=== PATIENT | male | born 1975 | race Caucasian/White ===

== ENCOUNTER 2019-07-12 21:34 | Inpatient (IN) ==
[2019-07-12] MEDS ORDERED: IBUPROFEN 600 MG TAB PO STA (21:54)
[2019-07-12] MEDS ORDERED: ACETAMINOPHEN 500 MG TAB PO STA (21:54)
--- NOTE | 2019-07-12 22:03 | Emergency Department Note ---
History of Present Illness General Chief complaint: Fever Stated complaint: FEVER Time Seen by Provider: 07/12/19 21:41 Source: patient Mode of arrival: ambulatory Limitations: no limitations History of Present Illness Maximum Pain Intensity: 5 This patient is a 43-year-old male who presents to the emergency department for evaluation of fever and flulike symptoms. The patient states that he has had symptoms for the past 4 days. He first measured his temperature 3 days ago and states it was up to 104 F. States the temp was 102 over the past 2 days. He has been taking Tylenol and ibuprofen intermittently which does seem to help with the temperature. He states that yesterday, he was seen at his primary care provider's office and was told that he had the flu, although no testing was done. He has had chills, body aches, cough and headache, although notes his symptoms have actually improved today. Patient states that he is concerned because his temperature increased again today and has not improved. He took ibuprofen 15 hours ago and Tylenol, 325 mg 10 hours ago he has had a decreased appetite today. He has been increasing his fluid intake. He has tried a cool washcloth and cool bath tonight which did not improve his fever. He rates his discomfort a 5/10. He denies recent travel. Home Medications Home Medications Medication Instructions Recorded Confirmed Type fluticasone propionate [Flonase 1 spray INTRANASAL DAILY PRN 07/12/19 07/12/19 History Allergy Relief] naproxen-pseudoephedrine [Aleve-D 1 tab PO BID PRN 07/12/19 07/12/19 History Sinus and Cold] oseltamivir [Tamiflu] 75 mg PO DIRECTED 07/12/19 07/12/19 History sodium chloride [Saline Mist] 2 spray INTRANASAL QID PRN 07/12/19 07/12/19 History Allergies Allergy/AdvReac Type Severity Reaction Status Date / Time erythromycin base Allergy Unknown Verified 07/12/19 22:27 Past Med/Surg History Medical History (Updated 07/13/19 @ 06:02 by Shaista Hu PA-C) No significant past medical history Surgical History No significant past surgical history Social History Beliefs That Will Affect Care: None Current Living Situation: Family current occupational status: employed current occupation: works in sales Other Information That Helps Us Care for You: No Feels Safe at Home: Yes Safety Concerns: Feels Safe At This Time Smoking Status: Never smoker Hx Alcohol Use: No Hx Substance Use: No Review of Systems A total of 10 systems reviewed and were otherwise negative Physical Exam Vital Signs Vital Signs - 24 hr 07/12/19 21:36 07/12/19 22:50 07/12/19 23:14 Temperature 39.1 C H Temperature Source Oral Pulse Rate 132 H Pulse Rate [Finger] Respiratory Rate 20 Respiratory Effort / Characteristics Non-Labored Spontaneous Respiratory Depth Normal Blood Pressure 146/82 H Blood Pressure Mean 103 Blood Pressure Position Sitting Pulse Oximetry 91 89 L 89 L Oxygen Delivery Method Room Air Room Air Room Air Sepsis Recent Fever Within 48 Hours Yes Sepsis New/Unexplained Change in Mental Status No Sepsis Action Taken by Nursing No Action Required 07/12/19 23:17 07/12/19 23:35 07/13/19 00:57 Temperature 38.1 C H Temperature Source Oral Pulse Rate Pulse Rate [Finger] 96 H Respiratory Rate 20 Respiratory Effort / Characteristics Spontaneous Respiratory Depth Blood Pressure Blood Pressure Mean Blood Pressure Position Pulse Oximetry 89 L 92 Oxygen Delivery Method Room Air Nasal Cannula Sepsis Recent Fever Within 48 Hours Sepsis New/Unexplained Change in Mental Status Sepsis Action Taken by Nursing VITALS: Vitals are noted on the nurse's note and reviewed by myself. Vital signs stable. GENERAL: This is a 43-year-old male, in mild distress, well-developed well- nourished. SKIN: The skin was without rashes. EARS: External auditory canals clear, tympanic membranes pearly maat without erythema or effusion bilaterally. EYES: Pupils equal round and reactive to light and accommodation. No conjunctiv al injection. NOSE: Patent, turbinates without inflammation or discharge. MOUTH: Mucous membranes moist. Tonsils are not enlarged. Pharynx without erythema or exudate. NECK: Supple without nuchal rigidity. No lymphadenopathy. HEART: Regular rate and rhythm without murmurs gallops or rubs. LUNGS: Tachypnea noted. Mild crackles in the left base. No retractions or accessory muscle use. ABDOMEN: Positive bowel sounds x 4. Soft, nontender to palpation. EXTREMITIES: No pitting edema. NEURO: Patient was alert and oriented to person place and time. Course Consultations Consultation #1: [facility] hospitalist Administered Medications Sodium Chloride (Nss 1000ml) 1,000 mls @ 125 mls/hr IV .Q8H KEL[place] Stop: 08/12/19 02:46 Last Admin: 07/13/19 02:59 Dose: 125 mls/hr Documented by: [id number] Piperacillin Sod/Tazobactam (Sod 3.375 gm/ Dextrose) 115 mls @ 28.75 mls/hr IV Q8H KELTON; Protocol Stop: 07/20/19 03:59 Last Admin: 07/13/19 04:00 Dose: 28.8 mls/hr Documented by: [id number] Discontinued Medications Acetaminophen (Tylenol) 1,000 mg PO NOW STA Stop: 07/12/19 21:55 Last Admin: 07/12/19 22:25 Dose: 1,000 mg Documented by: [id number] Albuterol (Duoneb) 3 ml NEB NOW STA Stop: 07/12/19 22:53 Last Admin: 07/12/19 23:14 Dose: 3 ml Documented by: [id number] Sodium Chloride (Nss 1000ml) 2,000 mls @ 999 mls/hr IV .Q2H1M ONE Stop: 07/13/19 00:41 Last Infusion: 07/13/19 02:51 Dose: 0 mls/hr Documented by: [id number] Admin: 07/12/19 23:20 Dose: 999 mls/hr Documented by: [id number] Piperacillin Sod/Tazobactam Sod (Zosyn) 4.5 gm in 120 mls @ 240 mls/hr IV NOW ONE Stop: 07/12/19 23:21 Last Infusion: 07/12/19 23:49 Dose: 0 mls/hr Documented by: [id number] Admin: 07/12/19 23:20 Dose: 240 mls/hr Documented by: [id number] Levofloxacin/Dextrose (Levaquin/D5w) 750 mg in 150 mls @ 100 mls/hr IV NOW STA Stop: 07/13/19 00:50 Last Infusion: 07/13/19 01:03 Dose: 0 mls/hr Documented by: [id number] Admin: 07/12/19 23:32 Dose: 100 mls/hr Documented by: [id number] Ibuprofen (Motrin) 600 mg PO NOW STA Stop: 07/12/19 21:55 Last Admin: 07/12/19 22:25 Dose: 600 mg Documented by: [id number] Medical Decision Making Differential Diagnosis Differential diagnosis includes pneumonia, influenza, viral illness, bronchitis, among others. Home Medications Current Medication List: was personally reviewed by me Laboratory Data Attestation: I reviewed the patient's lab results. Result diagrams: 07/12/19 23:13 07/12/19 23:13 Lab Results 07/12/19 07/12/19 07/12/19 Range/Units 22:05 23:13 23:13 WBC 4.29 L (4.8-10.8) K/uL RBC 4.73 (4.7-6.1) M/uL Hgb 14.0 (14.0-18.0) g/dL Hct 40.3 L (42-52) % MCV 85.2 (80-100) fL MCH 29.6 (25-34) pg MCHC 34.7 (32-36) g/dL RDW Std Deviation 39.3 (36.4-46.3) fL RDW Coeff of [place]ix[place] 12.5 (11.5-14.5) % Plt Count 136 (130-400) K/uL MPV 9.9 (7.4-10.4) fL Immature Gran % (Auto) 0.2 % Neut % (Auto) 79.8 % Lymph % (Auto) 12.1 % [place] % (Auto) 7.9 % Eos % (Auto) 0.0 % Baso % (Auto) 0.0 % Immature Gran # (Auto) 0.01 (0.00-0.02) K/uL Neut # (Auto) 3.42 (1.4-6.5) K/uL Lymph # (Auto) 0.52 L (1.2-3.4) K/uL [place] # (Auto) 0.34 (0.11-0.59) K/uL Eos # (Auto) 0.00 (0-0.5) K/uL Baso # (Auto) 0.00 (0-0.2) K/uL Giant Platelets 1+ Sodium (136-145) mmol/L Potassium (3.5-5.1) mmol/L Chloride (98-107) mmol/L Carbon Dioxide (21-32) mmol/L Anion Gap (3-11) BUN (7-18) mg/dl Creatinine (0.6-1.4) mg/dl Est Cr Clr Drug Dosing ml/min Est GFR ( Amer) Est GFR (Non-Af Amer) BUN/Creatinine Ratio (10-20) Glucose (70-99) mg/dl Lactate 1.0 (0.4-2.0) mmol/L Calcium (8.5-10.1) mg/dl Total Bilirubin (0.2-1) mg/dl AST (15-37) U/L ALT (12-78) U/L Alkaline Phosphatase (45-117) U/L Total Protein (6.4-8.2) gm/dl Albumin (3.4-5.0) gm/dl Globulin (2.5-4.0) gm/dl Albumin/Globulin Ratio (0.9-2) Procalcitonin (0-0.5) ng/ml Influenza Type A (PCR) Neg for Influ A (Neg) Influenza Type B (PCR) Neg for Influ B (Neg) 07/12/19 07/12/19 Range/Units 23:13 23:13 WBC (4.8-10.8) K/uL RBC (4.7-6.1) M/uL Hgb (14.0-18.0) g/dL Hct (42-52) % MCV (80-100) fL MCH (25-34) pg MCHC (32-36) g/dL RDW Std Deviation (36.4-46.3) fL RDW Coeff of [place] (11.5-14.5) % Plt Count (130-400) K/uL MPV (7.4-10.4) fL Immature Gran % (Auto) % Neut % (Auto) % Lymph % (Auto) % [place] % (Auto) % Eos % (Auto) % Baso % (Auto) % Immature Gran # (Auto) (0.00-0.02) K/uL Neut # (Auto) (1.4-6.5) K/uL Lymph # (Auto) (1.2-3.4) K/uL [place] # (Auto) (0.11-0.59) K/uL Eos # (Auto) (0-0.5) K/uL Baso # (Auto) (0-0.2) K/uL Giant Platelets Sodium 131 L (136-145) mmol/L Potassium 3.4 L (3.5-5.1) mmol/L Chloride 100 (98-107) mmol/L Carbon Dioxide 23 (21-32) mmol/L Anion Gap 8.0 (3-11) BUN 12 (7-18) mg/dl Creatinine 1.04 (0.6-1.4) mg/dl Est Cr Clr Drug Dosing 115.0 ml/min Est GFR ( Amer) 100.7 Est GFR (Non-Af Amer) 86.9 BUN/Creatinine Ratio 11.7 (10-20) Glucose 133 H (70-99) mg/dl Lactate (0.4-2.0) mmol/L Calcium 8.4 L (8.5-10.1) mg/dl Total Bilirubin 0.6 (0.2-1) mg/dl AST 39 H (15-37) U/L ALT 61 (12-78) U/L Alkaline Phosphatase 96 (45-117) U/L Total Protein 6.9 (6.4-8.2) gm/dl Albumin 2.9 L (3.4-5.0) gm/dl Globulin 4.0 (2.5-4.0) gm/dl Albumin/Globulin Ratio 0.7 L (0.9-2) Procalcitonin 0.57 H (0-0.5) ng/ml Influenza Type A (PCR) (Neg) Influenza Type B (PCR) (Neg) Imaging Data Attestation: I personally reviewed and interpreted this imaging study as f monico: Radiologist's Impression: XR chest 2V PA/lateral FINDINGS: Extensive alveolar opacities are noted throughout the lingula with additional scattered airspace opacities of the bilateral lower lobes. Cardiac silhouette is normal. No pneumothorax, large pleural effusion or overt pulmonary edema. Bones appear grossly intact. IMPRESSION: Multilobar left greater than right alveolar opacities are suggestive of multifocal pneumonia. Follow-up chest radiographs following treatment course recommended to document complete resolution. CT CHEST Without Contrast: Confluent consolidation in the lingula. Patchy infiltrates in the left upper and lower lobes. Much milder infiltrates in the right middle and right lower lobes. Radiologist: Valeria Manning M.D. Blood Pressure Blood Pressure Findings: Normal blood pressure Blood Pressure Disposition: did not require urgent referral MDM Narrative The patient is a 43-year-old male who presents today complaining of cough and fever. Chest x-ray was performed and shows a multifocal pneumonia. Labs were drawn and show a slightly low white blood cell count of 4.29. No concerning anemia or electrolyte abnormalities. Influenza testing by PCR was negative. Procalcitonin minimally elevated, lactate was within normal limits. Blood cultures were drawn and are pending. Patient was treated empirically with Zosyn and Levaquin. Given the severity of the patient's illness and leukopenia suggestive of viral process with negative influenza testing, there is concern for possibility of COVID-19 given current outbreak. While patient does not have any concerning travel history or exposure to COVID positive patient, the current CDC recommendations are to consider testing and hospitalized patient with no other known source. Infection control was made aware of the patient. He was placed in a negative pressure isolation room on airborne precautions. CT of the chest was performed after discussion with the hospitalist and confirms multifocal pneumonia with confluent consolidation in the lingula. Patient was hypoxic in the high 80s on room air and was placed on 2 L of oxygen via nasal cannula. He was given IV hydration, Tylenol and ibuprofen. The case was discussed with the [facility] hospitalist, who agreed to evaluate the patient for further care. Impression & Plan Multifocal pneumonia, Hypoxia Discharge Plan Visit Data *Final* Discharge Date/Time: 07/13/19 02:17 Chief Complaint: Fever Stated Complaint: FEVER ED Provider: Edgardo Vera ED Midlevel Provider: Shaista Hu Discharge Problem: Multifocal pneumonia, Hypoxia Patient Disposition: Admitted As Inpatient Discharge Instructions Interventions: ED Discharge Assessment Last Done: 07/13/19 02:17
--- NOTE | 2019-07-12 22:27 | XRay Report ---
XR chest 2V PA/lateral HISTORY: 43 years-old Male cough, fever acute cough with fever COMPARISON: None TECHNIQUE: PA and lateral views of the chest FINDINGS: Extensive alveolar opacities are noted throughout the lingula with additional scattered airspace opac ities of the bilateral lower lobes. Cardiac silhouette is normal. No pneumothorax, large pleural effu rene or overt pulmonary edema. Bones appear grossly intact. IMPRESSION: Multilobar left greater than right alveolar opacities are suggestive of multifocal pneumo xochitl. Follow-up chest radiographs following treatment course recommended to document complete resoluti on. ACT 112: Negative or not required by law. The above report was generated using voice recognition software. It may contain grammatical, syntax o r spelling errors. Electronically signed by: Lucian Sanchez M.D. 07/12/2019 10:26 PM
[2019-07-12] MEDS ORDERED: SODIUM CHLORIDE 0.9% 1000ML 2,000 ML IV ONE (22:41)
[2019-07-12 22:44] LABS: Influenza A virus by PCR Neg for Influ A (Neg); Influenza B virus by PCR Neg for Influ B (Neg)
[2019-07-12] MEDS ORDERED: ALBUT/IPRATROP 3MG/0.5MG NEB 3 ML VIAL NEB STA (22:52)
[2019-07-12] MEDS ORDERED: PIPERACILL/TAZOBAC CONSULT ACTIVE PRN (22:52)
[2019-07-12] MEDS ORDERED: PIPERACILLIN/TAZOBACTAM 4.5 GM/120 ML BAG IV ONE (22:52)
[2019-07-12] MEDS ORDERED: LEVOFLOXACIN/D5W 750 MG/150 ML BAG IV STA (23:21)
[2019-07-12 23:32] LABS: Hematocrit (blood only) 40.3 % (42-52); Mean Corpuscular Hemoglobin 29.6 pg (25-34); Mean Corpuscular Hgb Conc 34.7 g/dL (32-36); Mean Corpuscular Volume 85.2 fL (80-100); Mean Platelet Volume 9.9 fL (7.4-10.4); Platelet Count 136 K/uL (130-400); RDW Coefficient of Variation 12.5 % (11.5-14.5); RDW Standard Deviation 39.3 fL (36.4-46.3); Red Blood Count 4.73 M/uL (4.7-6.1); White Blood Count 4.29 K/uL (4.8-10.8)
[2019-07-12 23:43] LABS: Albumin Level 2.9 gm/dl (3.4-5.0); BUN Creatinine Ratio 11.7 (10-20); Calcium 8.4 mg/dl (8.5-10.1); Est GFR (African American) 100.7; Est GFR (Non-African American) 86.9; Potassium 3.4 mmol/L (3.5-5.1)
[2019-07-12 23:46] LABS: Albumin Globulin Ratio 0.7 (0.9-2); Bilirubin,Total 0.6 mg/dl (0.2-1); Total Protein 6.9 gm/dl (6.4-8.2)
[2019-07-12 23:49] LABS: Giant Platelets 1+; Immature Granulocytes # (auto) 0.01 K/uL (0.00-0.02); Immature Granulocytes % (auto) 0.2 %; Lymphocytes # (auto) 0.52 K/uL (1.2-3.4); Lymphocytes % (auto) 12.1 %; Monocytes # (auto) 0.34 K/uL (0.11-0.59); Monocytes % (auto) 7.9 %; Neutrophils # (auto) 3.42 K/uL (1.4-6.5); Neutrophils % (auto) 79.8 %
[2019-07-13] MEDS ORDERED: ONDANSETRON INJ 2 MG/ML 2 ML VIAL IV PRN (02:47)
[2019-07-13] MEDS ORDERED: FLUTICASONE PROPIONATE NA SPR 16 GM BTL PRN (02:47)
[2019-07-13] MEDS ORDERED: NITROGLYCERIN SL 0.4 MG/TAB TAB SL PRN (02:47)
[2019-07-13] MEDS: SODIUM CHLORIDE 0.9% 1000ML 1,000 ML IV SCH ×3 (02:59→17:18)
[2019-07-13] MEDS ORDERED: LEVOFLOXACIN CONSULT ACTIVE PRN (03:03)
[2019-07-13] MEDS: PIPERACILLIN/TAZOBACTAM 3.375 GM in DEXTROSE 5% 100 ML IV SCH ×3 (04:00→19:41)
--- NOTE | 2019-07-13 04:20 | History and Physical Report ---
DATE OF ADMISSION: 07/13/2019 CHIEF COMPLAINT: Fever and cough and shortness of breath. HISTORY OF PRESENT ILLNESS: This 43-year-old male with no significant past medical history, comes with fever and cough since last about 4 days. The patient says last he felt sick, felt cold, and Friday he had temperature and when he checked it was 104. He took [id number] medication, fever came down to 102 and he also developed some dry cough and today he is bringing up some brownish phlegm and was getting short of breath and his fever was again not subsiding, it was going up, so he came to the ER and his flu swab was negative. His labs showed some leukopenia of WBC of 4.2. Sodium of 131, potassium 3.4, procalcitonin 0.5, lactate was 1. Chest x-ray showed multifocal pneumonia and CT of the chest also was done which shows possible multilobar pneumonia and patient was tachycardic when he came in and also had T-max of 39.1. He got fluids and IV Zosyn, IV Levaquin and he says he is feeling much better now. He is saturating okay, he was 89% on room air, currently saturating fine on nasal cannula. Denies any runny nose, no sore throat. Has some headaches. Denies any dizziness, no blurred visions, no earaches. No recent travel. He works as a salesperson in the town. He lives with his and 2 sons and his 2 sons got flu couple of weeks ago and were doing fine since last 1 week. Today, his appetite is down. Denies any nausea, vomiting. No abdominal pain, no diarrhea, no constipation, no blood in the stools or black stools. No hematuria, no burning micturition. No rash, no swelling in the legs. ALLERGIES: ERYTHROMYCIN BASED. PAST MEDICAL HISTORY: None. PAST SURGICAL HISTORY: None. MEDICATIONS: None. FAMILY HISTORY: Denies any family history. SOCIAL HISTORY: Denies any smoking, alcohol rarely. No drug use. Lives with his family. REVIEW OF SYSTEMS: As per HPI. Rest of review of systems negative. PHYSICAL EXAMINATION: GENERAL: The patient is of moderate build, not in acute distress. VITAL SIGNS: Temperature T-max 39.1, blood pressure 146/82, pulse 96, respiratory rate 20, oxygen 89% on room air, currently 92% on nasal cannula. HEENT: Head atraumatic, Pupils equal, round, reactive to light. Oral mucosa moist. NECK: No neck masses, supple. CARDIOVASCULAR: S1, S2 heard. Tachycardia. No murmurs. RESPIRATORY SYSTEM: Normal AP diameter. No accessory muscle use. Mild bibasilar crackles. No wheezing. ABDOMEN: Soft, bowel sounds present, nontender. No distention. CENTRAL NERVOUS SYSTEM: Cranial nerves II-XII grossly intact. Nonfocal. EXTREMITIES: No edema, no erythema. LABORATORY DATA: WBC 4.2, hemoglobin 14, hematocrit 40.3, platelets 136. Sodium 131, potassium 3.4, chloride 100, bicarbonate 23, BUN 12, creatinine 1.04, serum glucose 133. Lactate 1, calcium 8.4, total bilirubin 0.6, AST 39, ALT 61, alkaline phosphatase 96. Procalcitonin 0.5. Influenza A and B negative. IMAGING DATA: Chest x-ray, multilobar left greater than right alveolar opacity suggestive of multifocal pneumonia. Chest CT preliminary report, patchy infiltrates in left upper and lower lobe, infiltrate in the right middle and right lower lobes. ASSESSMENT AND PLAN: This is a 43-year-old male who presents with fever, shortness of breath, cough, and found to have multifocal pneumonia. 1. Multifocal pneumonia, viral versus bacterial. Has mild leukopenia. The patient has high temperature, tachycardic, and hypoxic with 89% oxygen on room air. Imaging study is showing multifocal pneumonia. No recent travels. His boys got down with flu a couple of weeks ago and they are doing fine since 1 week. The patient is feeling better after fluids and antibiotics. We will follow the cultures. IV antibiotics with Zosyn and Levaquin, IV fluids at normal saline 125 mL per hour. Will get MRSA swab. Because of the concern of COVID-19, we will put him on contact precautions, air borne precautions, and we will send for COVID study and closely monitor. Follow the labs in the a.m. Will closely follow the response for above measures.. 2. Deep venous thrombosis prophylaxis, sequential compression devices. DISPOSITION: Admit to tele floor. Expect to discharge home and follow with his family doctor. Level 1 full code. MTDD
--- NOTE | 2019-07-13 06:27 | CT Scan Report ---
CT chest wo con CT DOSE: 612.79 mGy.cm HISTORY: Pneumonia multifocal pneumonia TECHNIQUE: Multiaxial CT images of the chest were performed without contrast. A dose lowering techni que was utilized adhering to the principles of ALARA. COMPARISON: None. FINDINGS: Bilateral diffuse ankle infiltrative change. This predominates in the left mid to left lowe r lung region. This involves the left lower lobe as well as components of the lingula. There are cons olidative changes of the lingula. Additional less prominent parenchymal infiltrative changes are seen in the left upper lobe. Less prom inent infiltrative changes seen in the right middle and right lower lobe region. IMPRESSION: 1. Diffuse left and to a lesser extent right parenchymal infiltrative change. 2. The lingular infiltrative changes show consolidative change. ACT 112: Negative or not required by law. The above report was generated using voice recognition software. It may contain grammatical, syntax or spelling errors. Electronically signed by: Joo Hurley M.D. 07/13/2019 6:26 AM
[2019-07-13 07:05] LABS: Basophils # (auto) 0.01 K/uL (0-0.2); Basophils % (auto) 0.2 %; Hematocrit (blood only) 39.7 % (42-52); Hemoglobin 13.4 g/dL (14.0-18.0); Immature Granulocytes # (auto) 0.02 K/uL (0.00-0.02); Immature Granulocytes % (auto) 0.5 %; Lymphocytes # (auto) 0.79 K/uL (1.2-3.4); Lymphocytes % (auto) 18.8 %; Mean Corpuscular Hemoglobin 29.7 pg (25-34); Mean Corpuscular Hgb Conc 33.8 g/dL (32-36); Mean Platelet Volume 9.7 fL (7.4-10.4); Monocytes # (auto) 0.49 K/uL (0.11-0.59); Monocytes % (auto) 11.7 %; Neutrophils # (auto) 2.89 K/uL (1.4-6.5); Neutrophils % (auto) 68.8 %; Platelet Count 125 K/uL (130-400); RDW Coefficient of Variation 12.9 % (11.5-14.5); RDW Standard Deviation 41.5 fL (36.4-46.3); Red Blood Count 4.51 M/uL (4.7-6.1)
[2019-07-13 07:47] LABS: BUN Creatinine Ratio 10.9 (10-20); Calcium 7.9 mg/dl (8.5-10.1); Creatinine Clr Calc Pharmacy 119.1 ml/min; Est GFR (African American) 104.4; Potassium 3.9 mmol/L (3.5-5.1)
[2019-07-13] MEDS: ACETAMINOPHEN 325 MG TAB PO PRN ×3 (08:40→19:41)
[2019-07-13] MEDS ORDERED: ZOLPIDEM TARTRATE 5 MG TAB PO PRN (16:51)
--- NOTE | 2019-07-13 16:51 | Hospitalist Progress Note ---
Date of Service July 13, 2019 Assessment & Plan (1) Multifocal pneumonia: Acute respiratory failure with Hypoxia secondary to multifocal pneumonia assessment for rule out COVID-19 -as per ED 07/12/2019 assessment: "The patient is a 43-year-old male who presents today complaining of cough and fever. Chest x-ray was performed and shows a multifocal pneumonia. Labs were drawn and show a slightly low white blood cell count of 4.29. No concerning anemia or electrolyte abnormalities. Influenza testing by PCR was negative. Procalcitonin minimally elevated, lactate was within normal limits. Blood cultures were drawn and are pending. Patient was treated empirically with Zosyn and Levaquin. Given the severity of the patient's illness and leukopenia suggestive of viral process with negative influenza testing, there is concern for possibility of COVID-19 given current outbreak. While patient does not have any concerning travel history or exposure to COVID positive patient, the current CDC recommendations are to consider testing and hospitalized patient with no other known source. Infection control was made aware of the patient. He was placed in a negative pressure isolation room on airborne precautions. CT of the chest was performed after discussion with the hospitalist and confirms multifocal pneumonia with confluent consolidation in the lingula. Patient was hypoxic in the high 80s on room air and was placed on 2 L of oxygen via nasal cannula. He was given IV hydration, Tylenol and ibuprofen. " -07/12/2019 CT chest "diffuse left and to a lesser extent right parenchymal infiltrative change. The lingular infiltrative changes show consolidative change." -the probability of COVID-19 as cause of the pneumonia appears very low, however, patient remains in airborne isolation/contact isolation until the COVID-19 testing returns. Continue Zosyn and Levaquin and supplementary oxygen. continue IV fluids. tachycardia from illness. monitor heart rate on telemetry -continue prn analgesics -full liquid diet for helping with appetitie -ambien prn for sleep Deep venous thrombosis prophylaxis, sequential compression devices Admission and Anticipated Discharge Date Admission Date: July 13, 2019 Subjective Patient on supplementary oxygen of nasal cannula. speaking in full sentences with periodic cough. no crackles audible on lung auscultation. patient does not report of acute chest pain or acute abdomen pain. no vomiting. reports poor appetite . tachycardia on exam around 110 bpm Review of Systems Review of Systems: All systems reviewed & are unremarkable except as noted in HPI & below Physical Exam Constitutional: + ill appearing Eyes: PERRL, conjunctivae normal, anicteric sclerae EOM intact bilaterally ENMT: external ear and nose normal, oropharynx normal Neck: normal visual inspection Respiratory: normal respiratory effort Auscultation: lungs clear to auscultation bilaterally Cardiovascular: Rate/Rhythm: + tachycardic Gastrointestinal (Abdomen): normal bowel sounds, soft, nontender, no hepatosplenomegaly Musculoskeletal: Head/Neck/Chest: normocephalic and head atraumatic Neurologic: PERRL, EOMI, accommodation nl, no face palsy, no dysarthria CN's II-XI intact bilaterally Psychiatric: Orientation: alert and oriented x 3 Results & Data ([facility]) Vital Signs (Past 12 Hours) Vital Signs Temp Pulse Pulse Resp BP Pulse Ox 07/13/19 15:20 36.7 C 110 H 20 129/76 93 07/13/19 11:28 36.7 C 107 H 18 126/76 91 07/13/19 09:00 88 07/13/19 07:15 36.4 C L 96 H 18 122/77 92
[2019-07-13] MEDS ORDERED: SODIUM CHLORIDE 0.9% 500 ML IV SCH (21:00)
[2019-07-13] MEDS: LEVOFLOXACIN/D5W 750 MG/150 ML BAG IV SCH (21:56)
[2019-07-14] MEDS: PIPERACILLIN/TAZOBACTAM 3.375 GM in DEXTROSE 5% 100 ML IV SCH ×3 (03:28→21:43)
[2019-07-14] MEDS: ACETAMINOPHEN 325 MG TAB PO PRN ×3 (03:47→17:00)
[2019-07-14] MEDS ORDERED: XOPENEX/ATROVENT 1.25mg/0.5MG NEB COMBO NEB PRN (03:55)
[2019-07-14] MEDS ORDERED: KETOROLAC 30 MG/ML VIAL IV ONE (03:57)
[2019-07-14] MEDS ORDERED: LEVALBUTEROL 1.25MG/0.5ML NEB INH PRN (04:00)
[2019-07-14] MEDS ORDERED: IPRATROPIUM BROMIDE NEB SOLN 0.02% 2.5 ML VIAL INH PRN (04:00)
--- NOTE | 2019-07-14 06:32 | XRay Report ---
XR chest 1V portable CLINICAL HISTORY: congestion COMPARISON STUDY: 07/12/2019 FINDINGS: There is progressive left mid and lower lung zone parenchymal consolidation consistent with pneumonia. Airspace opacities are also visualized towards the right lung base suggestive of a right lung pneumonia.[ IMPRESSION: Multifocal airspace opacities consistent with a multifocal pneumonia. Slight progression on the left. ACT 112: Negative or not required by law. Electronically signed by: Pierce Davis M.D. 07/14/2019 6:31 AM
[2019-07-14] MEDS: SODIUM CHLORIDE 0.9% 1000ML 1,000 ML IV SCH (08:02)
[2019-07-14] MEDS ORDERED: LEVALBUTEROL 1.25MG/0.5ML NEB NEB SCH (13:00)
[2019-07-14] MEDS: ACETYLCYSTEINE 10% INHAL SOLN 4 ML **DISPENSED BY RESP. INH SCH ×2 (13:38→19:37)
[2019-07-14 13:51] LABS: Basophils # (auto) 0.01 K/uL (0-0.2); Basophils % (auto) 0.5 %; Hematocrit (blood only) 37.2 % (42-52); Hemoglobin 12.8 g/dL (14.0-18.0); Immature Granulocytes # (auto) 0.01 K/uL (0.00-0.02); Immature Granulocytes % (auto) 0.5 %; Lymphocytes # (auto) 0.59 K/uL (1.2-3.4); Lymphocytes % (auto) 28.5 %; Mean Corpuscular Hemoglobin 29.3 pg (25-34); Mean Corpuscular Hgb Conc 34.4 g/dL (32-36); Mean Corpuscular Volume 85.1 fL (80-100); Mean Platelet Volume 9.5 fL (7.4-10.4); Monocytes # (auto) 0.39 K/uL (0.11-0.59); Monocytes % (auto) 18.8 %; Neutrophils # (auto) 1.07 K/uL (1.4-6.5); Neutrophils % (auto) 51.7 %; Platelet Count 133 K/uL (130-400); RDW Standard Deviation 40.6 fL (36.4-46.3); Red Blood Count 4.37 M/uL (4.7-6.1); White Blood Count 2.07 K/uL (4.8-10.8)
[2019-07-14 14:24] LABS: BUN Creatinine Ratio 11.1 (10-20); Calcium 8.4 mg/dl (8.5-10.1); Creatinine Clr Calc Pharmacy 115.6 ml/min; Est GFR (African American) 100.7; Est GFR (Non-African American) 86.9; Potassium 3.1 mmol/L (3.5-5.1)
[2019-07-14] MEDS: LACTOBACILLUS ACIDOPHILUS (FLORANEX) TAB PO SCH ×2 (17:00→21:43)
[2019-07-14] MEDS: guaiFENesin 600 MG TABCR PO SCH ×2 (17:00→21:43)
[2019-07-14] MEDS: LEVALBUTEROL HCL 1.25 MG/3 ML NEB NEB SCH (19:37)
--- NOTE | 2019-07-14 20:11 | Hospitalist Progress Note ---
Date of Service July 14, 2019 Assessment & Plan (1) Multifocal pneumonia: Acute Respiratory failure with Hypoxia secondary to multifocal pneumonia assessment for rule out COVID-19 COVID 19 test pending [employer] screen positive for coronavirus HK1u and mycoplasma Blood cultures negative so far Sputum culture pending T-max 39.1 WBC 2.07 Clinically patient improving gradually overall Needs to be monitored closely Continue Zosyn plus Levaquin Increase IV fluids Add scheduled nebs, Mucomyst, Mucinex Humidify oxygen, wean off accordingly PRN Tylenol for fever Deep venous thrombosis prophylaxis, Lovenox 40 mg subcutaneous daily next sequential compression devices Disposition Pending Case and plan of care discussed with patient in detail and at length All questions answered He is understanding, comfortable, agreeable with plan of care Admission and Anticipated Discharge Date Admission Date: July 13, 2019 Subjective Follow-up for multifocal pneumonia, hypoxia Seen sitting up in bed, on 2 L of oxygen via nasal cannula, comfortable, not in distress Very pleasant States he feels improved day by day, less short of breath today Still having cough positive of yellow sputum Denies chest pain, palpitations, dizziness Having chills when temperature spikes Denies headache, dizziness, chest pain, abdominal pain, nausea vomiting No urinary symptoms, diarrhea Denies other symptoms Review of Systems Review of Systems: All systems reviewed & are unremarkable except as noted in HPI & below Physical Exam Physical Exam: General- oriented x 3, not in distress, speaks in sentences with no effort or accessory muscle use Head- atraumatic Eyes- PERRL, EOMI, anicteric ENT- oropharynx clear Neck- supple, no JVD, no adenopathy, no thyromegaly; carotids +2/2, no bruits appreciated Lungs-positive diffuse rhonchi left lung, mild rhonchi in the right No wheezing Heart- normal rate, regular rhythm; no murmur, no gallop, no rub appreciated Abdomen- normal bowel sounds, nondistended, soft, nontender, no masses or hepatosplenomegaly Extremities- no pretibial edema, no calf tenderness; peripheral pulses intact Neuro- alert, oriented x 3; CN 2-12 grossly intact; motor 5/5 bilaterally;sensation 100% on all extremities; no other gross focal neurologic deficits Skin- warm & dry Results & Data ([facility]) Vital Signs (Past 12 Hours) Vital Signs Temp Pulse Pulse Resp BP Pulse Ox 07/14/19 19:40 100 H 18 93 07/14/19 17:00 38.2 C H 100 H 22 113/74 95 07/14/19 16:00 103 H 07/14/19 12:09 36.6 C 84 18 114/77 91 Laboratory Results Laboratory Results - last 24 hr 07/13/19 07/13/19 07/14/19 08:23 21:20 13:42 WBC 2.07 L RBC 4.37 L Hgb 12.8 L Hct 37.2 L MCV 85.1 MCH 29.3 MCHC 34.4 RDW Std Deviation 40.6 RDW Coeff of [place] 13.0 Plt Count 133 MPV 9.5 Immature Gran % (Auto) 0.5 Neut % (Auto) 51.7 Lymph % (Auto) 28.5 [place] % (Auto) 18.8 Eos % (Auto) 0.0 Baso % (Auto) 0.5 Immature Gran # (Auto) 0.01 Neut # (Auto) 1.07 L Lymph # (Auto) 0.59 L [place] # (Auto) 0.39 Eos # (Auto) 0.00 Baso # (Auto) 0.01 Sodium Potassium Chloride Carbon Dioxide Anion Gap BUN Creatinine Est Cr Clr Drug Dosing Est GFR ( Amer) Est GFR (Non-Af Amer) BUN/Creatinine Ratio Glucose Lactate 1.2 Calcium Ref Lab Test Result 07/14/19 13:42 WBC RBC Hgb Hct MCV MCH MCHC RDW Std Deviation RDW Coeff of [place]ix[place] Plt Count MPV Immature Gran % (Auto) Neut % (Auto) Lymph % (Auto) [place] % (Auto) Eos % (Auto) Baso % (Auto) Immature Gran # (Auto) Neut # (Auto) Lymph # (Auto) [place] # (Auto) Eos # (Auto) Baso # (Auto) Sodium 134 L Potassium 3.1 L D Chloride 103 Carbon Dioxide 24 Anion Gap 7.0 BUN 12 Creatinine 1.04 Est Cr Clr Drug Dosing 115.6 Est GFR ( Amer) 100.7 Est GFR (Non-Af Amer) 86.9 BUN/Creatinine Ratio 11.1 Glucose 127 H Lactate Calcium 8.4 L Ref Lab Test Result
[2019-07-14] MEDS ORDERED: POTASSIUM CHLORIDE 20 MEQ TABCR PO ONE (20:15)
[2019-07-14] MEDS: ENOXAPARIN INJ 40 MG/0.4 ML SYR SQ SCH (21:43)
[2019-07-14] MEDS: NSS + 20MEQ KCL 20 MEQ/1,000 ML BAG IV SCH (21:43)
[2019-07-14] MEDS: LEVOFLOXACIN/D5W 750 MG/150 ML BAG IV SCH (23:49)
[2019-07-15] MEDS: LEVALBUTEROL HCL 1.25 MG/3 ML NEB NEB SCH ×4 (01:01→19:55)
[2019-07-15] MEDS: PIPERACILLIN/TAZOBACTAM 3.375 GM in DEXTROSE 5% 100 ML IV SCH (05:23)
[2019-07-15] MEDS: NSS + 20MEQ KCL 20 MEQ/1,000 ML BAG IV SCH ×3 (05:24→20:28)
[2019-07-15] MEDS: ACETYLCYSTEINE 10% INHAL SOLN 4 ML **DISPENSED BY RESP. INH SCH ×2 (07:23→19:56)
[2019-07-15 07:28] LABS: Hematocrit (blood only) 33.6 % (42-52); Hemoglobin 11.5 g/dL (14.0-18.0); Mean Corpuscular Hemoglobin 29.5 pg (25-34); Mean Corpuscular Hgb Conc 34.2 g/dL (32-36); Mean Corpuscular Volume 86.2 fL (80-100); Mean Platelet Volume 9.3 fL (7.4-10.4); Platelet Count 136 K/uL (130-400); RDW Coefficient of Variation 13.3 % (11.5-14.5); RDW Standard Deviation 42.3 fL (36.4-46.3); White Blood Count 2.44 K/uL (4.8-10.8)
[2019-07-15 07:51] LABS: Basophils # (auto) 0.01 K/uL (0-0.2); Basophils % (auto) 0.4 %; Echinocytes 1+; Eosinophils # (auto) 0.01 K/uL (0-0.5); Eosinophils % (auto) 0.4 %; Immature Granulocytes # (auto) 0.01 K/uL (0.00-0.02); Immature Granulocytes % (auto) 0.4 %; Lymphocytes # (auto) 0.74 K/uL (1.2-3.4); Lymphocytes % (auto) 30.3 %; Monocytes # (auto) 0.68 K/uL (0.11-0.59); Monocytes % (auto) 27.9 %; Neutrophils # (auto) 0.99 K/uL (1.4-6.5); Neutrophils % (auto) 40.6 %
[2019-07-15 07:58] LABS: BUN Creatinine Ratio 7.7 (10-20); Calcium 8.3 mg/dl (8.5-10.1); Creatinine Clr Calc Pharmacy 120.3 ml/min; Est GFR (African American) 105.6; Est GFR (Non-African American) 91.1; Potassium 3.9 mmol/L (3.5-5.1)
[2019-07-15] MEDS: guaiFENesin 600 MG TABCR PO SCH ×2 (08:09→20:33)
[2019-07-15] MEDS: LACTOBACILLUS ACIDOPHILUS (FLORANEX) TAB PO SCH ×4 (08:09→20:34)
--- NOTE | 2019-07-15 08:47 | XRay Report ---
XR chest 1V portable CLINICAL HISTORY: Pneumonia. Follow-up examination. COMPARISON STUDY: 07/14/2019 FINDINGS: There is slight improvement in the dense parenchymal consolidation involving the left mid l ower lung zones. There is also slight improvement in the right lower lung zone airspace opacities. Th ere are no large pleural effusions. There is no failure.[ IMPRESSION: 1. Mild improvement in the bilateral pulmonary airspace opacities consistent with a multifocal pneumo xochitl ACT 112: Negative or not required by law. Electronically signed by: Pierce Davis M.D. 07/15/2019 8:46 AM
--- NOTE | 2019-07-15 17:10 | Pulmonary Consultation ---
Date of Consultation July 15, 2019 Assessment & Plan (1) Multifocal pneumonia: Procalcitonin is 0.63 which is slightly elevated (0-0.5) Patient apparently started on levofloxacin and Zosyn (day #3) Last documented fever 07/14/2019 at 1700 (38.2 centigrade) Is probably multifactorial including a viral component Patient positive for coronavirus HKU1 Testing for COVID19 is pending Continue isolation per protocol Continue supportive care (2) Hypoxia: This is now resolved. Chest x-ray shows improvement today Fever has resolved Continue empiric antibiotics and supportive care for viral infection (3) Cytopenia: He denies history of cytopenia in the past Most likely bone marrow suppression from acute illness Follow serial labs Thank you for including us in the care of this patient We will continue to follow along with you Please refer to Dr. Marcus's addendum for further recommendations History of Present Illness Attending Physician: Nelson Angela MD History of Present Illness Attending: Dr. Marcus Patient is a 43-year-old male that presents with shortness of breath and fever. He reports he has had fever since last Friday. His fever at home was as high as 104 Fahrenheit. When asked what his presumptive symptoms were when he presented the ED he responded he "knew that something was wrong". Patent reports persistent fever, cough, and malaise. He states that his cough is non- productive currently but was previously yellowish-brown. Hemoptysis. Flu swab was negative for influenza A and influenza B. However, respiratory panel revealed coronavirus HKU1 and mycoplasma pneumonia. He states that his fever has subsided. He has no chest pain or tightness. He has no nausea or vomiting. He has no diarrhea. Patient clinically is improved but still has occasional cough. Patient states he has no significant past medical history. He has no history of tobacco abuse including cigarettes or smokeless tobacco. He has no illicit drug use history. He has limited social ethanol use. He has no contacts he is aware of that have been in contact with COVID-19. He travels locally for business but no travel outside of the region. Allergies Allergy/AdvReac Type Severity Reaction Status Date / Time erythromycin base Allergy Unknown Verified 07/12/19 22:27 Home Medications Home Medications Medication Instructions Recorded Confirmed Type fluticasone propionate [Flonase 1 spray INTRANASAL DAILY PRN 07/12/19 07/12/19 History Allergy Relief] naproxen-pseudoephedrine [Aleve-D 1 tab PO BID PRN 07/12/19 07/12/19 History Sinus and Cold] oseltamivir [Tamiflu] 75 mg PO DIRECTED 07/12/19 07/12/19 History sodium chloride [Saline Mist] 2 spray INTRANASAL QID PRN 07/12/19 07/12/19 History Patient History Medical History No significant past medical history Surgical History No significant past surgical history Social History Communication Ability: Effective Beliefs That Will Affect Care: None Current Living Situation: Family current occupational status: employed current occupation: works in sales Other Information That Helps Us Care for You: No Feels Safe at Home: Yes Safety Concerns: Feels Safe At This Time Smoking Status: Never smoker Hx Alcohol Use: No Hx Substance Use: No Review of Systems Review of Systems: All systems reviewed & are unremarkable except as noted in HPI & below Physical Exam Physical Exam: GENERAL : No acute distress EYES: No icterus, gaze conjugate NOSE: No evidence of epistaxis MOUTH: No lesions or candidiasis NECK: Supple LUNGS: CTA B/L, no wheezes, rales or rhonchi HEART: Regular, rate controlled ABDOMEN: Soft, NT, ND, BS Present EXTREMITIES: No LE edema, pedal pulses intact NEURO: A&OX3 Results & Data ([facility]) Vital Signs (Past 12 Hours) Vital Signs Temp Pulse Pulse Resp BP Pulse Ox Pulse Ox 07/15/19 13:26 108 H 16 94 07/15/19 12:00 37.2 C 98 H 20 126/63 95 07/15/19 09:29 94 H 07/15/19 08:00 36.5 C 103 H 20 116/72 98 98 07/15/19 07:24 95 H 19 90 07/15/19 05:27 36.8 C 102 H 18 121/72 90 Laboratory Results XR chest 1V portable CLINICAL HISTORY: Pneumonia. Follow-up examination. COMPARISON STUDY: 07/14/2019 FINDINGS: There is slight improvement in the dense parenchymal consolidation involving the left mid lower lung zones. There is also slight improvement in the right lower lung zone airspace opacities. There are no large pleural effusions. There is no failure.[ IMPRESSION: 1. Mild improvement in the bilateral pulmonary airspace opacities consistent with a multifocal pneumonia Electronically signed by: Pierce Davis M.D. 07/15/2019 8:[address] chest wo con CT DOSE: 612.79 mGy.cm HISTORY: Pneumonia multifocal pneumonia TECHNIQUE: Multiaxial CT images of the chest were performed without contrast. A dose lowering technique was utilized adhering to the principles of ALARA. COMPARISON: None. FINDINGS: Bilateral diffuse ankle infiltrative change. This predominates in the left mid to left lower lung region. This involves the left lower lobe as well as components of the lingula. There are consolidative changes of the lingula. Additional less prominent parenchymal infiltrative changes are seen in the left upper lobe. Less prominent infiltrative changes seen in the right middle and right lower lobe region. IMPRESSION: 1. Diffuse left and to a lesser extent right parenchymal infiltrative change. 2. The lingular infiltrative changes show consolidative change. Electronically signed by: Joo Hurley M.D. 07/13/2019 6:26 AM PG Care Time/CCT Total # of Minutes Spent Total Time Spent with Patient: Total time spent is greater than 50% in coordination of care (as documented) at patient's floor/unit and/or counseling patient: 25 minutes Coding Level of Care Code 79046 Inpt Consult Level 4 Diagnoses Multifocal pneumonia J18.9 Hypoxia R09.02 Cytopenia D75.9
--- NOTE | 2019-07-15 19:37 | Hospitalist Progress Note ---
Date of Service July 15, 2019 Assessment & Plan (1) Multifocal pneumonia: Acute Respiratory failure with Hypoxia secondary to multifocal pneumonia assessment for rule out COVID-19 COVID 19 test pending [employer] screen positive for coronavirus HK1u and mycoplasma Blood cultures negative so far Sputum culture moderate normal irene Afebrile overnight Positive pancytopenia today Discussed with pulmonology service DC Zosyn, continue Levaquin Continue scheduled nebs, Mucomyst, Mucinex Continue IV fluids gently PRN Tylenol for fever Neutropenia, anemia Likely secondary to bone marrow suppression secondary to underlying severe infection No signs of bleeding Peripheral smear ordered Neutropenic precaution Continue to monitor Deep venous thrombosis prophylaxis, Lovenox 40 mg subcutaneous daily sequential compression devices Disposition lives at home with family Case and plan of care discussed with patient in detail and at length All questions answered He is understanding, comfortable, agreeable with plan of care Admission and Anticipated Discharge Date Admission Date: July 13, 2019 Subjective For multifocal pneumonia, coronavirus HK 1u Seen resting in bed, comfortable, in good spirits Off nasal cannula, saturating well on room air States he had feels overnight but this morning feels improved compared to the past few days No shortness of breath, less cough, less sputum production No chest pain No headache, dizziness, abdominal pain, nausea vomiting Appetite improving No other symptoms Review of Systems Review of Systems: All systems reviewed & are unremarkable except as noted in HPI & below Physical Exam Physical Exam: General- oriented x 3, not in distress, speaks in sentences with no effort or accessory muscle use Eyes- anicteric Neck- no JVD Lungs-mild rhonchi left base, clear on the right Heart- normal rate, regular rhythm; no murmurs Abdomen- normal bowel sounds, nondistended, soft, nontender Extremities- no pretibial edema, no calf tenderness Neuro- alert, oriented x 3; no gross focal neurologic deficits Skin- warm & dry Results & Data ([facility]) Vital Signs (Past 12 Hours) Vital Signs Temp Pulse Pulse Resp BP Pulse Ox Pulse Ox 07/15/19 16:00 37.3 C 105 H 19 115/62 92 07/15/19 13:26 108 H 16 94 07/15/19 12:00 37.2 C 98 H 20 126/63 95 07/15/19 09:29 94 H 07/15/19 08:00 36.5 C 103 H 20 116/72 98 98 Laboratory Results Laboratory Results - last 24 hr 07/15/19 07/15/19 07/15/19 07:10 07:10 10:13 WBC 2.44 L RBC 3.90 L Hgb 11.5 L Hct 33.6 L MCV 86.2 MCH 29.5 MCHC 34.2 RDW Std Deviation 42.3 RDW Coeff of Marix[place] 13.3 Plt Count 136 MPV 9.3 Immature Gran % (Auto) 0.4 Neut % (Auto) 40.6 Lymph % (Auto) 30.3 [place] % (Auto) 27.9 Eos % (Auto) 0.4 Baso % (Auto) 0.4 Immature Gran # (Auto) 0.01 Neut # (Auto) 0.99 L* Lymph # (Auto) 0.74 L [place] # (Auto) 0.68 H Eos # (Auto) 0.01 Baso # (Auto) 0.01 Absolute Nucleated RBC 0.00 Nucleated RBC % (auto) 0.0 Echinocytes 1+ Peripher Smr Path Cons Sodium 137 Potassium 3.9 D Chloride 108 H Carbon Dioxide 23 Anion Gap 6.0 BUN 8 Creatinine 1.00 Est Cr Clr Drug Dosing 120.3 Est GFR ( Amer) 105.6 Est GFR (Non-Af Amer) 91.1 BUN/Creatinine Ratio 7.7 L Glucose 103 H Calcium 8.3 L Procalcitonin 0.63 H
[2019-07-15] MEDS: ENOXAPARIN INJ 40 MG/0.4 ML SYR SQ SCH (20:34)
[2019-07-16] MEDS: LEVOFLOXACIN/D5W 750 MG/150 ML BAG IV SCH (00:04)
[2019-07-16] MEDS: LEVALBUTEROL HCL 1.25 MG/3 ML NEB NEB SCH ×4 (00:14→21:00)
[2019-07-16] MEDS: NSS + 20MEQ KCL 20 MEQ/1,000 ML BAG IV SCH (05:35)
[2019-07-16 07:06] LABS: Basophils # (auto) 0.01 K/uL (0-0.2); Basophils % (auto) 0.4 %; Eosinophils # (auto) 0.03 K/uL (0-0.5); Eosinophils % (auto) 1.2 %; Hematocrit (blood only) 34.5 % (42-52); Hemoglobin 11.7 g/dL (14.0-18.0); Immature Granulocytes # (auto) 0.01 K/uL (0.00-0.02); Immature Granulocytes % (auto) 0.4 %; Lymphocytes # (auto) 0.92 K/uL (1.2-3.4); Lymphocytes % (auto) 36.4 %; Mean Corpuscular Hemoglobin 29.3 pg (25-34); Mean Corpuscular Hgb Conc 33.9 g/dL (32-36); Mean Corpuscular Volume 86.3 fL (80-100); Mean Platelet Volume 9.5 fL (7.4-10.4); Monocytes # (auto) 0.51 K/uL (0.11-0.59); Monocytes % (auto) 20.2 %; Neutrophils # (auto) 1.05 K/uL (1.4-6.5); Neutrophils % (auto) 41.4 %; Platelet Count 181 K/uL (130-400); RDW Coefficient of Variation 13.5 % (11.5-14.5); White Blood Count 2.53 K/uL (4.8-10.8)
[2019-07-16] MEDS: ACETYLCYSTEINE 10% INHAL SOLN 4 ML **DISPENSED BY RESP. INH SCH ×2 (07:40→21:00)
[2019-07-16 07:42] LABS: Calcium 8.3 mg/dl (8.5-10.1); Creatinine Clr Calc Pharmacy 125.6 ml/min; Est GFR (African American) 112.4; Potassium 4.1 mmol/L (3.5-5.1)
[2019-07-16] MEDS: guaiFENesin 600 MG TABCR PO SCH ×2 (07:55→20:23)
[2019-07-16] MEDS: LACTOBACILLUS ACIDOPHILUS (FLORANEX) TAB PO SCH ×4 (07:56→20:22)
--- NOTE | 2019-07-16 08:31 | XRay Report ---
XR chest 1V portable CLINICAL HISTORY: 43 years-old Male presenting with follow up pna. TECHNIQUE: Portable upright AP view of the chest was obtained. COMPARISON: 07/15/2019. FINDINGS: Cardiomediastinal silhouette normal. Extensive patchy opacities in the left mid to lower lung, which are grossly stable from prior. Slight decrease in patchy opacities in the right mid to lower lung.. N o large effusion or pneumothorax. Osseous structures normal. Upper abdomen normal. IMPRESSION: 1. Stable extensive left mid to lower lung infiltrates and slight decrease in right mid to lower johnnie g infiltrates compatible with ongoing multifocal pneumonia. ACT 112: Negative or not required by law. Electronically signed by: Zackary Brennan M.D. 07/16/2019 8:29 AM
[2019-07-16] MEDS ORDERED: GUAIFENESIN/CODEINE 100MG/10MG 5ML UDC PO PRN (19:50)
[2019-07-16] MEDS: levoFLOXacin 750 MG TAB PO SCH (20:22)
[2019-07-16] MEDS: ENOXAPARIN INJ 40 MG/0.4 ML SYR SQ SCH (20:22)
--- NOTE | 2019-07-16 20:49 | Hospitalist Progress Note ---
Date of Service July 16, 2019 Assessment & Plan (1) Multifocal pneumonia: Acute Respiratory failure with Hypoxia secondary to multifocal pneumonia assessment for rule out COVID-19 COVID 19 test pending-followed up with laboratory department, still awaiting results from lab request, if no results by tomorrow, we will follow-up with lab [employer] screen positive for coronavirus HK1u and mycoplasma Blood cultures negative so far Sputum culture moderate normal irene Remains afebrile CBC stable-ANC slightly improved, HIV test negative, peripheral smear: Nonspecific findings continue Levaquin p.o. Continue scheduled nebs, Mucomyst, Mucinex, add Tessalon Perles as needed DC IV fluids PRN Tylenol for fever Neutropenia, anemia Likely secondary to bone marrow suppression secondary to underlying severe infection No signs of bleeding Peripheral smear ordered: Nonspecific findings ANC slightly improving Neutropenic precaution Continue to monitor Deep venous thrombosis prophylaxis, Lovenox 40 mg subcutaneous daily sequential compression devices Disposition lives at home with family Case and plan of care discussed with patient in detail and at length All questions answered He is understanding, comfortable, agreeable with plan of care Admission and Anticipated Discharge Date Admission Date: July 13, 2019 Subjective Follow-up for pneumonia, hypoxia Seen sitting up in bedside chair, comfortable States he continues to feel improved Still having dry cough, but no shortness of breath No chills States strength is coming back, appetite also improved No other symptoms Review of Systems Review of Systems: All systems reviewed & are unremarkable except as noted in HPI & below Physical Exam Physical Exam: General- oriented x 3, not in distress, speaks in sentences with no effort or accessory muscle use Eyes- anicteric Neck- no JVD Lungs-mild rhonchi on the left, no wheezing, clear on the right Heart- normal rate, regular rhythm; no murmurs Abdomen- normal bowel sounds, nondistended, soft, nontender Extremities- no pretibial edema, no calf tenderness Neuro- alert, oriented x 3; no gross focal neurologic deficits Skin- warm & dry Results & Data ([facility]) Vital Signs (Past 12 Hours) Vital Signs Temp Pulse Resp BP Pulse Ox 07/16/19 19:54 37.6 C H 108 H 20 114/70 92 07/16/19 16:55 36.6 C 99 H 20 125/76 95 07/16/19 13:12 105 H 18 92 07/16/19 11:53 36.7 C 105 H 20 115/75 94 Laboratory Results Laboratory Results - last 24 hr 07/16/19 07/16/19 07/16/19 06:15 06:18 06:18 WBC 2.53 L RBC 4.00 L Hgb 11.7 L Hct 34.5 L MCV 86.3 MCH 29.3 MCHC 33.9 RDW Std Deviation 43.0 RDW Coeff of Marixa 13.5 Plt Count 181 MPV 9.5 Immature Gran % (Auto) 0.4 Neut % (Auto) 41.4 Lymph % (Auto) 36.4 [place] % (Auto) 20.2 Eos % (Auto) 1.2 Baso % (Auto) 0.4 Immature Gran # (Auto) 0.01 Neut # (Auto) 1.05 L Lymph # (Auto) 0.92 L [place] # (Auto) 0.51 Eos # (Auto) 0.03 Baso # (Auto) 0.01 Sodium 139 Potassium 4.1 Chloride 109 H Carbon Dioxide 24 Anion Gap 6.0 BUN 7 Creatinine 0.95 Est Cr Clr Drug Dosing 125.6 Est GFR ( Amer) 112.4 Est GFR (Non-Af Amer) 97.0 BUN/Creatinine Ratio 7.0 L Glucose 93 Calcium 8.3 L HIV 1&2 Ab/P24 Ag 4thGn Neg
[2019-07-17] MEDS: LEVALBUTEROL HCL 1.25 MG/3 ML NEB NEB SCH ×4 (01:15→19:08)
[2019-07-17 07:09] LABS: Basophils # (auto) 0.01 K/uL (0-0.2); Basophils % (auto) 0.3 %; Eosinophils # (auto) 0.11 K/uL (0-0.5); Eosinophils % (auto) 3.5 %; Hematocrit (blood only) 36.5 % (42-52); Hemoglobin 12.4 g/dL (14.0-18.0); Immature Granulocytes # (auto) 0.02 K/uL (0.00-0.02); Immature Granulocytes % (auto) 0.6 %; Lymphocytes # (auto) 0.93 K/uL (1.2-3.4); Lymphocytes % (auto) 29.3 %; Mean Corpuscular Hemoglobin 29.4 pg (25-34); Mean Corpuscular Volume 86.5 fL (80-100); Mean Platelet Volume 9.2 fL (7.4-10.4); Monocytes # (auto) 0.63 K/uL (0.11-0.59); Monocytes % (auto) 19.9 %; Neutrophils # (auto) 1.47 K/uL (1.4-6.5); Neutrophils % (auto) 46.4 %; Platelet Count 208 K/uL (130-400); RDW Coefficient of Variation 13.5 % (11.5-14.5); RDW Standard Deviation 42.9 fL (36.4-46.3); Red Blood Count 4.22 M/uL (4.7-6.1); White Blood Count 3.17 K/uL (4.8-10.8)
[2019-07-17] MEDS: ACETYLCYSTEINE 10% INHAL SOLN 4 ML **DISPENSED BY RESP. INH SCH ×2 (07:16→19:07)
[2019-07-17 07:43] LABS: BUN Creatinine Ratio 9.2 (10-20); Calcium 8.6 mg/dl (8.5-10.1); Creatinine Clr Calc Pharmacy 123.1 ml/min; Est GFR (African American) 120.5; Potassium 3.9 mmol/L (3.5-5.1)
[2019-07-17] MEDS: LACTOBACILLUS ACIDOPHILUS (FLORANEX) TAB PO SCH ×4 (07:58→19:58)
[2019-07-17] MEDS: guaiFENesin 600 MG TABCR PO SCH ×2 (07:58→19:59)
--- NOTE | 2019-07-17 10:06 | Hospitalist Progress Note ---
Date of Service July 17, 2019 Assessment & Plan (1) Multifocal pneumonia: Acute Respiratory failure with Hypoxia secondary to multifocal pneumonia [employer] screen positive for coronavirus HK1u and mycoplasma COVID 19 test negative Blood cultures negative so far Sputum culture moderate normal irene tmax 38 CBC stable-ANC slightly improved, HIV test negative, peripheral smear: Nonspecific findings continue Levaquin p.o. Continue scheduled nebs, Mucomyst, Mucinex, Tessalon Perles as needed PRN Tylenol for fever Neutropenia, anemia Likely secondary to bone marrow suppression secondary to underlying severe infection No signs of bleeding Peripheral smear ordered: Nonspecific findings ANC slightly improving Neutropenic precaution Continue to monitor Mild LFT elevation likely secondary to Pneumonia, Viral infection hepatitis panel, Liver us ordered Deep venous thrombosis prophylaxis, Lovenox 40 mg subcutaneous daily sequential compression devices Disposition lives at home with family Case and plan of care discussed with patient in detail and at length All questions answered He is understanding, comfortable, agreeable with plan of care Admission and Anticipated Discharge Date Admission Date: July 13, 2019 Subjective ff up for pneumonia seen resting in bedside chair, comfortable, off oxygen states he continues to feel improved (+) tmax 38 overnight no dyspnea, less cough and sputum no chest pain no abdominal pain, nausea, diarrhea no other symptoms Review of Systems Review of Systems: All systems reviewed & are unremarkable except as noted in HPI & below Physical Exam Physical Exam: General- oriented x 3, not in distress, speaks in sentences with no effort or accessory muscle use Eyes- anicteric Neck- no JVD Lungs-crackles on the left base, no wheezing clear on the right Heart- normal rate, regular rhythm; no murmurs Abdomen- normal bowel sounds, nondistended, soft, nontender Extremities- no pretibial edema, no calf tenderness Neuro- alert, oriented x 3; no gross focal neurologic deficits Skin- warm & dry Results & Data ([facility]) Vital Signs (Past 12 Hours) Vital Signs Temp Pulse Pulse Resp BP Pulse Ox 07/17/19 08:00 36.7 C 101 H 20 122/78 92 07/17/19 07:19 89 16 92 07/17/19 04:00 36.7 C 89 16 106/70 92 07/17/19 00:00 38.0 C H 96 H 18 108/65 92 07/16/19 23:07 99 H Laboratory Results Laboratory Results - last 24 hr 07/17/19 07/17/1907/17/20 10:52 10:52 06:49 WBC RBC Hgb Hct MCV MCH MCHC RDW Std Deviation RDW Coeff of Marixa Plt Count MPV Immature Gran % (Auto) Neut % (Auto) Lymph % (Auto) [place] % (Auto) Eos % (Auto) Baso % (Auto) Immature Gran # (Auto) Neut # (Auto) Lymph # (Auto) [place] # (Auto) Eos # (Auto) Baso # (Auto) Sodium 137 Potassium 4.0 Chloride 108 H Carbon Dioxide 21 Anion Gap 8.0 BUN 9 Creatinine 0.83 Est Cr Clr Drug Dosing 132.0 Est GFR ( Amer) 124.0 Est GFR (Non-Af Amer) 107.0 BUN/Creatinine Ratio 11.2 Glucose 102 H Calcium 8.4 L Total Bilirubin 0.5 0.5 Direct Bilirubin 0.1 < 0.1 AST 188 H 142 H ALT 220 H 194 H Alkaline Phosphatase 125 H 115 Total Protein 7.6 6.9 Albumin 2.9 L 2.6 L Procalcitonin 0.24 Hepatitis A IgM Ab Hep Bs Antigen Hep B Core IgM Ab Hepatitis C Antibody 07/18/19 07/18/19 07/18/19 06:49 06:49 06:49 WBC 3.23 L RBC 4.42 L Hgb 12.7 L Hct 38.3 L MCV 86.7 MCH 28.7 MCHC 33.2 RDW Std Deviation 42.7 RDW Coeff of [place]ix[place] 13.3 Plt Count 285 MPV 9.4 Immature Gran % (Auto) 0.9 Neut % (Auto) 36.9 Lymph % (Auto) 33.7 [place] % (Auto) 22.3 Eos % (Auto) 5.9 Baso % (Auto) 0.3 Immature Gran # (Auto) 0.03 H Neut # (Auto) 1.19 L Lymph # (Auto) 1.09 L [place] # (Auto) 0.72 H Eos # (Auto) 0.19 Baso # (Auto) 0.01 Sodium Potassium Chloride Carbon Dioxide Anion Gap BUN Creatinine Est Cr Clr Drug Dosing Est GFR ( Amer) Est GFR (Non-Af Amer) BUN/Creatinine Ratio Glucose Calcium Total Bilirubin Direct Bilirubin AST ALT Alkaline Phosphatase Total Protein Albumin Procalcitonin Hepatitis A IgM Ab Pending Hep Bs Antigen Pending Hep B Core IgM Ab Pending Hepatitis C Antibody Pending
[2019-07-17 11:49] LABS: Albumin Level 2.9 gm/dl (3.4-5.0); Bilirubin Direct 0.1 mg/dl (0-0.2); Bilirubin,Total 0.5 mg/dl (0.2-1); Total Protein 7.6 gm/dl (6.4-8.2)
[2019-07-17] MEDS: BENZONATATE 100 MG CAPSULE PO PRN (11:57)
--- NOTE | 2019-07-17 18:35 | Ultrasound Report ---
US liver CLINICAL HISTORY: elevated LFTs COMPARISON STUDY: No previous studies for comparison. FINDINGS: Fatty infiltration of the liver. Normal gallbladder. Common bile duct 4 mm. Pancreas and ri ght kidney are unremarkable. No evidence for renal hydronephrosis. IMPRESSION: Fatty infiltration of the liver. Otherwise negative study. ACT 112: Negative or not required by law. The above report was generated using voice recognition software. It may contain grammatical, syntax or spelling errors. Electronically signed by: Joo Hurley M.D. 07/17/2019 6:34 PM
[2019-07-17] MEDS: levoFLOXacin 750 MG TAB PO SCH (19:59)
[2019-07-17] MEDS: ENOXAPARIN INJ 40 MG/0.4 ML SYR SQ SCH (19:59)
[2019-07-18] MEDS: LEVALBUTEROL HCL 1.25 MG/3 ML NEB NEB SCH ×3 (00:24→13:29)
[2019-07-18 07:13] LABS: Basophils # (auto) 0.01 K/uL (0-0.2); Basophils % (auto) 0.3 %; Eosinophils # (auto) 0.19 K/uL (0-0.5); Eosinophils % (auto) 5.9 %; Hematocrit (blood only) 38.3 % (42-52); Hemoglobin 12.7 g/dL (14.0-18.0); Immature Granulocytes # (auto) 0.03 K/uL (0.00-0.02); Immature Granulocytes % (auto) 0.9 %; Lymphocytes # (auto) 1.09 K/uL (1.2-3.4); Lymphocytes % (auto) 33.7 %; Mean Corpuscular Hemoglobin 28.7 pg (25-34); Mean Corpuscular Hgb Conc 33.2 g/dL (32-36); Mean Corpuscular Volume 86.7 fL (80-100); Mean Platelet Volume 9.4 fL (7.4-10.4); Monocytes # (auto) 0.72 K/uL (0.11-0.59); Monocytes % (auto) 22.3 %; Neutrophils # (auto) 1.19 K/uL (1.4-6.5); Neutrophils % (auto) 36.9 %; Platelet Count 285 K/uL (130-400); RDW Coefficient of Variation 13.3 % (11.5-14.5); RDW Standard Deviation 42.7 fL (36.4-46.3); Red Blood Count 4.42 M/uL (4.7-6.1); White Blood Count 3.23 K/uL (4.8-10.8)
[2019-07-18 07:43] LABS: Alanine Aminotransferase 194 U/L (12-78); Albumin Level 2.6 gm/dl (3.4-5.0); Aspartate Aminotransferase 142 U/L (15-37); BUN Creatinine Ratio 11.2 (10-20); Bilirubin Direct < 0.1 mg/dl (0-0.2); Blood Urea Nitrogen 9 mg/dl (7-18); Calcium 8.4 mg/dl (8.5-10.1); Carbon Dioxide 21 mmol/L (21-32); Chloride 108 mmol/L (98-107); Glucose 102 mg/dl (70-99); Sodium 137 mmol/L (136-145)
[2019-07-18 07:46] LABS: Alkaline Phosphatase 115 U/L (45-117); Bilirubin,Total 0.5 mg/dl (0.2-1); Total Protein 6.9 gm/dl (6.4-8.2)
[2019-07-18] MEDS: ACETYLCYSTEINE 10% INHAL SOLN 4 ML **DISPENSED BY RESP. INH SCH (07:47)
[2019-07-18] MEDS: LACTOBACILLUS ACIDOPHILUS (FLORANEX) TAB PO SCH ×2 (08:15→11:52)
[2019-07-18] MEDS: guaiFENesin 600 MG TABCR PO SCH (08:16)
[2019-07-18] MEDS: BENZONATATE 100 MG CAPSULE PO PRN (08:20)
[2019-07-18 10:04] LABS: Hepatitis B Surface Antigen Neg (Neg)
[2019-07-18 10:32] LABS: Hepatitis C IgG 13Yrs+Old_Rflx Neg (Neg)
--- NOTE | 2019-07-18 12:16 | Hospitalist Progress Note ---
Date of Service July 18, 2019 Assessment & Plan (1) Multifocal pneumonia: Acute Respiratory failure with Hypoxia secondary to Multifocal pneumonia- Mycoplasma pneumonia CT chest: 1. Diffuse left and to a lesser extent right parenchymal infiltrative change. 2. The lingular infiltrative changes show consolidative change. Biofire screen positive for coronavirus HK1u and mycoplasma COVID 19 test negative Blood cultures negative Sputum culture moderate normal irene remained afebrile overnight saturating well on room air, ambulating with no problems CBC improving given IV Zosyn x 3 days, completed 5 days of levaquin as well given scheduled nebs, Mucomyst, Mucinex, Tessalon Perles as needed patient significantly improved d/c plan: Levaquin 750mg po daily x 2 days Mucinex x 7 days Probiotics daily x 1 month Tessalon pearls PRN PRN xopenex Neutropenia, Anemia Likely secondary to bone marrow suppression secondary to underlying severe infection No signs of bleeding Peripheral smear ordered: Nonspecific findings HIV test negative ANC slightly improving -- repeat CBC on ff up with PCP this week Mild LFT elevation likely secondary to Pneumonia, Viral infection AST ALT ALk phos - improving hepatitis panel: hep C negative, hep A & B pending, please follow up Liver US: IMPRESSION: Fatty infiltration of the liver. Otherwise negative study. - follow up final hepatitis a & B results repeat LFTs on ff up with PCP this week follow up fatty liver Episodes of Bowel Incontinence intermittent, usually associated with stress advised Colonoscopy on last Physical Exam follow up as outpatient Deep venous thrombosis prophylaxis, Lovenox 40 mg subcutaneous daily given sequential compression devices Disposition d/c home f fup with PCP this week Case and plan of care discussed with patient in detail and at length All questions answered He is understanding, comfortable, agreeable with plan of care Admission and Anticipated Discharge Date Admission Date: July 13, 2019 Subjective ff up for pneumonia seen resting in chair, comfortable, in good spirits states he feels much better overall afebrile overnight no shortness of breath less cough, no sputum no chest pain no other symptoms states he is ready and would like to be discharged today Review of Systems Review of Systems: All systems reviewed & are unremarkable except as noted in HPI & below Physical Exam Physical Exam: General- oriented x 3, not in distress, speaks in sentences with no effort or accessory muscle use Eyes- anicteric Neck- no JVD Lungs- mild crackles left base clear on the right Heart- normal rate, regular rhythm; no murmurs Abdomen- normal bowel sounds, nondistended, soft, nontender Extremities- no pretibial edema, no calf tenderness Neuro- alert, oriented x 3; no gross focal neurologic deficits Skin- warm & dry Results & Data ([facility]) Vital Signs (Past 12 Hours) Vital Signs Temp Pulse Resp BP Pulse Ox 07/18/19 11:58 36.5 C 89 15 113/77 94 07/18/19 07:40 36.4 C L 102 H 22 110/77 91 07/18/19 04:33 37.0 C 86 17 105/67 93 Laboratory Results Laboratory Results - last 24 hr 07/18/19 07/18/19 07/18/19 06:49 06:49 06:49 WBC RBC Hgb Hct MCV MCH MCHC RDW Std Deviation RDW Coeff of [place] Plt Count MPV Immature Gran % (Auto) Neut % (Auto) Lymph % (Auto) [place] % (Auto) Eos % (Auto) Baso % (Auto) Immature Gran # (Auto) Neut # (Auto) Lymph # (Auto) [place] # (Auto) Eos # (Auto) Baso # (Auto) Sodium 137 Potassium 4.0 Chloride 108 H Carbon Dioxide 21 Anion Gap 8.0 BUN 9 Creatinine 0.83 Est Cr Clr Drug Dosing 132.0 Est GFR ( Amer) 124.0 Est GFR (Non-Af Amer) 107.0 BUN/Creatinine Ratio 11.2 Glucose 102 H Calcium 8.4 L Total Bilirubin 0.5 Direct Bilirubin < 0.1 AST 142 H ALT 194 H Alkaline Phosphatase 115 Total Protein 6.9 Albumin 2.6 L Hepatitis A IgM Ab Pending Hep Bs Antigen Neg Hep B Core IgM Ab Pending Hepatitis C Antibody Neg 07/18/19 06:49 WBC 3.23 L RBC 4.42 L Hgb 12.7 L Hct 38.3 L MCV 86.7 MCH 28.7 MCHC 33.2 RDW Std Deviation 42.7 RDW Coeff of [place] 13.3 Plt Count 285 MPV 9.4 Immature Gran % (Auto) 0.9 Neut % (Auto) 36.9 Lymph % (Auto) 33.7 [place] % (Auto) 22.3 Eos % (Auto) 5.9 Baso % (Auto) 0.3 Immature Gran # (Auto) 0.03 H Neut # (Auto) 1.19 L Lymph # (Auto) 1.09 L [place] # (Auto) 0.72 H Eos # (Auto) 0.19 Baso # (Auto) 0.01 Sodium Potassium Chloride Carbon Dioxide Anion Gap BUN Creatinine Est Cr Clr Drug Dosing Est GFR ( Amer) Est GFR (Non-Af Amer) BUN/Creatinine Ratio Glucose Calcium Total Bilirubin Direct Bilirubin AST ALT Alkaline Phosphatase Total Protein Albumin Hepatitis A IgM Ab Hep Bs Antigen Hep B Core IgM Ab Hepatitis C Antibody
[2019-07-18] MEDS ORDERED: LEVALBUTEROL TARTRATE 15 GM HFA.AER.AD INH PRN (12:24)
--- NOTE | 2019-07-18 12:48 | Communication Note ---
Date of Service: July 18, 2019 /: PATIENT JANEL DE WAS ADMITTED TO [facility] FOR EVALUATION AND MANAGEMENT FROM JULY 12 TO 2019. PATIENT IS ADVISED TO REST AT HOME AND FOLLOW UP WITH THE PRIMARY CARE PHYSICIAN THIS WEEK PRIOR TO RETURNING TO WORK. THANK YOU. SINCERELY, BRAXTON ADAMS MD ATTENDING PHYSICIAN
--- NOTE | 2019-07-18 12:49 | Discharge Summary ---
Date of Service July 18, 2019 Admission HPI Per Admitting Provider CHIEF COMPLAINT: Fever and cough and shortness of breath. HISTORY OF PRESENT ILLNESS: This 43-year-old male with no significant past medical history, comes with fever and cough since last about 4 days. The patient says last he felt sick, felt cold, and Friday he had temperature and when he checked it was 104. He took [id number] medication, fever came down to 102 and he also developed some dry cough and today he is bringing up some brownish phlegm and was getting short of breath and his fever was again not subsiding, it was going up, so he came to the ER and his flu swab was negative. His labs showed some leukopenia of WBC of 4.2. Sodium of 131, potassium 3.4, procalcitonin 0.5, lactate was 1. Chest x-ray showed multifocal pneumonia and CT of the chest also was done which shows possible multilobar pneumonia and patient was tachycardic when he came in and also had T-max of 39.1. He got fluids and IV Zosyn, IV Levaquin and he says he is feeling much better now. He is saturating okay, he was 89% on room air, currently saturating fine on nasal cannula. Denies any runny nose, no sore throat. Has some headaches. Denies any dizziness, no blurred visions, no earaches. No recent travel. He works as a salesperson in the town. He lives with his and 2 sons and his 2 sons got flu couple of weeks ago and were doing fine since last 1 week. Today, his appetite is down. Denies any nausea, vomiting. No abdominal pain, no diarrhea, no constipation, no blood in the stools or black stools. No hematuria, no burning micturition. No rash, no swelling in the legs. Admission Exam Per Admitting Provider PHYSICAL EXAMINATION: GENERAL: The patient is of moderate build, not in acute distress. VITAL SIGNS: Temperature T-max 39.1, blood pressure 146/82, pulse 96, respiratory rate 20, oxygen 89% on room air, currently 92% on nasal cannula. HEENT: Head atraumatic, Pupils equal, round, reactive to light. Oral mucosa moist. NECK: No neck masses, supple. CARDIOVASCULAR: S1, S2 heard. Tachycardia. No murmurs. RESPIRATORY SYSTEM: Normal AP diameter. No accessory muscle use. Mild bibasilar crackles. No wheezing. ABDOMEN: Soft, bowel sounds present, nontender. No distention. CENTRAL NERVOUS SYSTEM: Cranial nerves II-XII grossly intact. Nonfocal. EXTREMITIES: No edema, no erythema. Principal Diagnosis MULTIFOCAL PNEUMONIA - MYCOPLASMA PNEUMONIAE Discharge Exam General- oriented x 3, not in distress, speaks in sentences with no effort or accessory muscle use Eyes- anicteric Neck- no JVD Lungs- mild crackles left base clear on the right Heart- normal rate, regular rhythm; no murmurs Abdomen- normal bowel sounds, nondistended, soft, nontender Extremities- no pretibial edema, no calf tenderness Neuro- alert, oriented x 3; no gross focal neurologic deficits Skin- warm & dry Discharge Data Allergies Allergy/AdvReac Type Severity Reaction Status Date / Time erythromycin base Allergy Unknown Verified 07/12/19 22:27 Consultations 07/12/19 23:59 ED Decision to Admit Stat 07/13/19 02:47 Consult Case Management - Discharge Planning Routine 07/15/19 08:07 Consult Pulmonology Routine Ordered Studies 07/12/19 23:58 CT chest wo con Urgent FINDINGS: Bilateral diffuse ankle infiltrative change. This predominates in the left mid to left lower lung region. This involves the left lower lobe as well as components of the lingula. There are consolidative changes of the lingula. Additional less prominent parenchymal infiltrative changes are seen in the left upper lobe. Less prominent infiltrative changes seen in the right middle and right lower lobe region. IMPRESSION: 1. Diffuse left and to a lesser extent right parenchymal infiltrative change. 2. The lingular infiltrative changes show consolidative change. 07/17/19 16:15 US liver Routine FINDINGS: Fatty infiltration of the liver. Normal gallbladder. Common bile duct 4 mm. Pancreas and right kidney are unremarkable. No evidence for renal hydronephrosis. IMPRESSION: Fatty infiltration of the liver. Otherwise negative study. Hospital Course (1) Multifocal pneumonia: Acute Respiratory failure with Hypoxia secondary to Multifocal pneumonia- Mycoplasma pneumonia CT chest: 1. Diffuse left and to a lesser extent right parenchymal infiltrative change. 2. The lingular infiltrative changes show consolidative change. Biofire screen positive for coronavirus HKU1 and mycoplasma COVID 19 test negative Blood cultures negative Sputum culture moderate normal irene fever resolved weaned off oxygen saturating well on room air, ambulating with no problems CBC improving given IV Zosyn x 3 days, completed 5 days of levaquin as well given scheduled nebs, Mucomyst, Mucinex, Tessalon Perles as needed patient significantly improved d/c plan: Levaquin 750mg po daily x 2 days to complete 7 days Mucinex x 7 days Probiotics daily x 1 month Tessalon pearls PRN PRN xopenex Neutropenia, Anemia Likely secondary to bone marrow suppression secondary to underlying severe infection -- WBC 2.0 to 3.2 ANC 990 to 1,100 -- Hg 11-12 -- Plt 285 -- No signs of bleeding Peripheral smear ordered: Nonspecific findings HIV test negative ANC slightly improving -- repeat CBC on ff up with PCP this week Mild LFT elevation likely secondary to Pneumonia, Viral infection AST 188 --> 142 ALT 220 --> 194 ALk phos 125 --> 115 - improving hepatitis panel: Negative Liver US: IMPRESSION: Fatty infiltration of the liver. Otherwise negative study. - repeat LFTs on ff up with PCP this week follow up fatty liver Episodes of Bowel Incontinence intermittent, usually associated with stress advised Colonoscopy on last Physical Exam follow up as outpatient Deep venous thrombosis prophylaxis, Lovenox 40 mg subcutaneous daily given with sequential compression devices Disposition d/c home f fup with PCP this week Case and plan of care discussed with patient in detail and at length All questions answered He is understanding, comfortable, agreeable with plan of care Total Time Total Time Spent Total Time Spent (In Minutes): > 30 minutes Discharge Plan Discharge Items Patient Disposition: Home - Self-Care Reason For Visit: FEVER/SOB Discharge Diagnosis: MULTIFOCAL PNEUMONIA- BACTERIAL AND VIRAL Activity: As commented below Activity Comment: RESUME ACTIVITY GRADUALLY TOLERATED Lifting: Wait until after follow-up appointment Exercise/Sports: Wait until after follow-up appointment Driving/Machine Use: NO DRIVING UNTIL RE-EVALUATED AND ALLOWED BY PRIMARY CARE PHYSICIAN Non-emergency contact: Primary Care Provider Call non-emergency contact if: you have any medication questions, your symptoms worsen and you have a fever Follow-up/Referrals: Brody Patel MD [Primary Care Provider] - 07/20/19 11:00 am Diet: Heart Healthy and Low Fat Addtl Attending Provider Instructions: Your new medications include: Levaquin - antibiotic for pneumonia Mucinex and Tessalon Pearls- for cough Albuterol inhaler- as needed for shortness of breath Please take a probiotic daily for at least 1 month. Drink plenty of water. Follow up with Dr. Patel on Friday07/20/2019 at 11:00am. Call your primary care physician or return to the ER immediately if with recurrence/worsening of symptoms, including increasing cough, shortness of breath, sputum production ,fever/chills. Pending Studies at Discharge: Yes Studies:: repeat bloodwork- complete blood count and liver panel, on follow up with PCP Wednesday 07/19 final hepatitis A & B results- on PCP follow up Stand-Alone Forms: My [facility], Smoking Cessation Medications and DC Order Prescriptions: New levalbuterol tartrate [Xopenex HFA] 45 mcg/actuation Hfa Aerosol Inhaler 2 puff inhalation QID PRN (Reason: shortness of breath) 7 Days Qty: 15 RF: 0 benzonatate [Tessalon Perles] 100 mg Capsule 100 mg PO TID PRN (Reason: cough) Qty: 20 RF: 0 guaifenesin [Mucinex] 600 mg Tablet Extended Release 12hr 1,200 mg PO Q12 7 Days Qty: 28 RF: 0 Continued fluticasone propionate [Flonase Allergy Relief] 50 mcg/actuation [place],Suspension 1 spray INTRANASAL DAILY PRN (Reason: Nasal Congestion) RF: 0 Aleve-D Sinus and Cold 220-120 mg Tablet Extended Release 12 Hr 1 tab PO BID PRN (Reason: Congestion) RF: 0 sodium chloride [Saline Mist] 0.65 % Aerosol,[place] 2 spray INTRANASAL QID PRN (Reason: Nasal Congestion) RF: 0 Discontinued oseltamivir [Tamiflu] 75 mg capsule 75 mg PO DIRECTED RF: 0 Discharge Orders: Discharge Order (Routine); Ordered 07/18/19 Ordered By: Nelson Angela Admission Data Admit Date/Time: 07/13/19 01:40 Attending Provider: Nelson Angela Admit Provider: John Anne Primary Care Provider: Brody Patel Other Providers: John Anne ; Hemal Cheng ; Oleg Marcus Other Interventions: Discharge Summary Assessment (RN) Last Done: 07/18/19 13:23 DC Date/Time DO NOT enter until pt leaves facility: 07/18/19 13:40
[2019-07-20 13:20] LABS: Hepatitis A Antibody IgM NON-REACTIVE (NON-REACTIVE); Hepatitis B Core Antibody IgM NON-REACTIVE (NON-REACTIVE)
== END 2019-07-18 13:40 | disposition home or self-care (01) | DRG 871 ==
LOC: ED 21:34 → SUATTDRO 07-13 01:40 → 2S 07-13 01:40